=== PATIENT | female | born 1970 | race Caucasian/White ===

== ENCOUNTER 2024-11-26 11:51 | Emergency (ER) | payer SELFPAY ==
[~2024-11-26] VITALS: Ht 162.6 cm; Wt 69.0 kg
[2024-11-26 11:55] VITALS: O2SAT 96
[2024-11-26] MEDS ORDERED: ACET-2708 MT (16:28)
[2024-11-26] MEDS: ACETAMINOPHEN 325MG TABLET PO ONE (16:48)
[2024-11-26 16:50] VITALS: BP 142/80; PULSE 78; RESP 16; TEMP 36.9; O2SAT 96
== END 2024-11-26 16:51 | disposition home or self-care (01) ==
LOC: ER 11:51
DX: M25.511 Pain in right shoulder (principal)
CPT/HCPCS: 71045; 72128; 72131; 73030; 73080; 73130; 99284